=== PATIENT | female | born 1985 | race Caucasian/White ===

== ENCOUNTER 2022-11-20 14:33 | Emergency (ER) | payer OTHER ==
[2022-11-20] MEDS ORDERED: Prochlorperazine 10 MG/2 ML VIAL ONE (15:07)
[2022-11-20] MEDS ORDERED: Ketorolac Tromethamine 30 MG/ML VIAL ONE (15:08)
[2022-11-20] MEDS ORDERED: diphenhydrAMINE 50 MG/ML VIAL ONE (15:08)
[2022-11-20] MEDS ORDERED: Orphenadrine Citrate 60 MG/2 ML VIAL ONE (17:04)
== END 2022-11-20 17:25 | disposition home or self-care (01) ==
LOC: CSHERS 14:33
DX: M54.12 Radiculopathy, cervical region (principal); R51.9 Headache, unspecified
CPT/HCPCS: 96374; 96375; J0780; J1200; J1885; J2360